=== PATIENT | female | born 1945 | race Caucasian/White ===

== ENCOUNTER 2022-12-21 10:49 | Outpatient (OUT) | payer MEDICARE, OTHER, SELFPAY ==
--- NOTE | 2022-12-21 11:02 | ECG_ITS ---
[facility] Test Date: 2022-12-21 Pat Name: Kaylee Ca Department: Room: - Gender: Female [employer]: : 1945 Requested By: HENRY GARZA Order Number: [id number] Reading MD: MISAEL MILAN Measurements Intervals [place] Rate: 51 P: 63 RI: 170 QRS: 1 QRSD: 94 T: 46 QT: 445 QTc: 412 Interpretive Statements SINUS BRADYCARDIA No previous ECG available for comparison Electronically Signed On 12-22-2022 7:08:04 EDT by MISAEL MILAN
[2022-12-21 12:06] LABS: Basophils Absolute Auto 0.1 10^3/uL (0.0-0.1); Basophils Percent Auto 0.8 % (0.2-2.0); Eosinophils Absolute Auto 0.2 10^3/uL (0.0-0.7); Eosinophils Percent Auto 3.4 % (0.9-7.0); Hematocrit 45.6 % (36.0-48.0); Hemoglobin 14.7 g/dL (12.0-16.0); Immature Granulocytes Abs Auto 0.02 10^3/uL (0.00-0.03); Immature Granulocytes Pct Auto 0.3 % (0.0-0.5); Lymphocytes Absolute Auto 1.6 10^3/uL (1.2-3.8); Lymphocytes Percent Auto 24.5 % (20.5-60.0); Mean Corpuscular HGB Conc 32.2 g/dL (29.9-35.2); Mean Corpuscular Hemoglobin 29.3 pg (26.7-34.0); Mean Platelet Volume 9.7 fL (9.5-13.5); Monocytes Absolute Auto 0.6 10^3/uL (0.3-0.8); Platelet Count 287 10^3/uL (150-450); Red Blood Count 5.01 10^6/uL (4.20-5.40); Red Cell Distribution Width 14.4 % (11.0-15.0); White Blood Count 6.5 10^3/uL (4.0-11.0)
[2022-12-21 12:22] LABS: Anion Gap 13.7; BUN Creatinine Ratio 25.9; Calcium 9.8 mg/dL (8.5-10.1); Carbon Dioxide 26.5 mmol/L (21.0-32.0); Chloride 102 mmol/L (98-107); Estimated GFR (African America >60 (>=60); Estimated GFR (Non-African Ame >60 (>=60); Glucose 101 mg/dL (74-106); Potassium 4.2 mmol/L (3.5-5.1); Sodium 138 mmol/L (136-145)
[2022-12-21 13:14] LABS: INR 0.96; Partial Thromboplastin Time 27.9 sec (22.3-36.2); Prothrombin Time 10.2 sec (9.0-11.6)
== END 2022-12-21 10:50 | disposition home or self-care (01) ==
PROVIDERS: Visit Provider Urology
DX: Z01.812 Encounter for preprocedural laboratory examination (principal); Z01.810 Encounter for preprocedural cardiovascular examination; N20.0 Calculus of kidney; I34.0 Nonrheumatic mitral (valve) insufficiency; Z79.01 Long term (current) use of anticoagulants
CPT/HCPCS: 80048; 85025; 85610; 85730; 93005

== ENCOUNTER 2022-12-30 07:27 | Day surgery (SDC) | payer MEDICARE, OTHER, SELFPAY ==
[2022-12-21 11:44] VITALS: BP 144/84; PULSE 58; RESP 20; TEMP 36.3; O2SAT 97; BMI 27.7
[2022-12-30] VITALS (9 sets, daily range): BP systolic 108–127; BP diastolic 68–83; PULSE 69–80; RESP 12–23; TEMP 36.2; O2SAT 94–97; BMI 27.4
--- NOTE | 2022-12-30 07:31 | XR_ITS ---
The [address] [address] Patient Name: ENTO CANELA MRN: [id number] date: 1945 Sex: F Assigned [facility] Current [facility] Accession/Order Number: [id number] Exam Date: 12/30/2022 07:40 Report Date: 12/30/2022 08:01 At the request of: HENRY GARZA Procedure: XR abdomen 1V EXAMINATION: XR abdomen 1V HISTORY: Left kidney stone COMPARISON: XR abdomen 12/09/2022 FINDINGS: KIDNEY/URETER - RIGHT: No visible renal or ureteral calcifications. KIDNEY/URETER - LEFT: Several calcifications projecting over left kidney, largest is 5 mm. PELVIS: Stable pelvic calcifications favoring phleboliths. BOWEL: No abnormal dilation or deviation. BONES: No acute abnormality. OTHER: Negative. No abnormal gaseous collections. XR/XR abdomen 1V IMPRESSION: 1. Grossly stable left nephrolithiasis. Electronically authenticated by: ZOHREH OCHOA Date: 12/30/2022 08:01
[2022-12-30] MEDS: LACTATED RINGER'S SOLUTION 1,000 ML 50 ML IV (08:07)
[2022-12-30] MEDS: CEFAZOLIN SODIUM/DEXTROSE,ISO 1 GM/50 ML IV.SOLN IV (08:33)
--- NOTE | 2022-12-30 09:25 | P.URON_ITS ---
Urology Surgery Operative Note Operative Note Procedure Date: 12/30/22 Time Out Performed: yes Pre-op Diagnosis: left nephrolithiasis Post-op Diagnosis: same as pre-op Procedures performed: #1. Left ESWL. Anesthesia: General-LMA Primary Surgeon: Elton Cabrera Complications: non- Estimated blood loss (mL): 0 Findings: 4, left renal calculi. Specimens: none Indications for Procedures: this lady has recurrent left nephrolithiasis. She now presents for left ESWL. She has signed an informed consent for this procedure after all the risks were explained. Some of these risks include bleeding, perinephric hematoma, infection and anesthesia to name a few. Detailed description of Procedure: The patient was brought to the Operating Room and placed on Siemens electromagnetic lithotripsy treatment table in the supine position. SCDs were placed on their lower extremities and turned on and functioning during the entire case. Timeout was done by all parties in the room. We all agreed upon the patient's identification and the planned procedures for this patient. General Anesthesia was then administered via LMA. Treatment head was then brought to the patient's correct side. While using flourscopy the stone was identified and lined up into the crosshairs. we started with the largest central stone. We applied a total of 2000 shocks to this stone. Fortunately, not only this stone was fragmented but also the stone inferior to it was. We then applied 500 shocks to the upper stone and 500 shocks to the lower stone. All 4 of the stones fragmented well. we applied a total of 3000 shocks to the left renal unit.The procedure was then terminated. She was then transferred to a rwesterly bed and wheeled to PACU in stable condition.
== END 2022-12-30 10:40 | disposition home or self-care (01) ==
PROVIDERS: Visit Provider Urology
PROC: (CPT 50590; principal; 2022-12-30 08:50)
DX: N20.0 Calculus of kidney (principal); Z85.828 Personal history of other malignant neoplasm of skin; I34.0 Nonrheumatic mitral (valve) insufficiency; Z79.82 Long term (current) use of aspirin; Z79.899 Other long term (current) drug therapy; Z87.442 Personal history of urinary calculi
CPT/HCPCS: 50590; 36415; 74018; J2704